=== PATIENT | female | born 1925 | race Caucasian/White ===

== ENCOUNTER 2016-08-28 16:07 | Emergency (ER) | payer MEDICARE, OTHER ==
[~2016-08-28] VITALS: Ht 160 cm; Wt 77.0 kg
[~2016-08-28 16:07] MED LIST: ACET325T45 GTB; AMLO2.5T2; ASPI81TA3 GTB; CARB1TAB18 GTB; DOCU50LI18 GTB; LEVO25TA59; LIPA1CAP4; MEMA10SO GTB
[2016-08-28 16:17] VITALS: Ht 160 cm; Wt 77.0 kg
--- NOTE | 2016-08-28 16:23 | ERA ---
ER Documentation Chief Complaint Date/Time DATE: 08/28/16 TIME: 16:23 Chief Complaint gtube replacement. dislodged today HPI The patient is a 89-year-old female, accidentally pulled out her G-tube today at 11 PM. Nursing staff was able to insert a Vidal catheter in the stoma. She is unable to provide a history, the history is obtained medical medical record ROS All systems reviewed and are negative except as per history of present illness. Medications Home Meds Reported Medications Acetaminophen* (Acetaminophen*) 325 Mg Tablet, 325 MG GTB Q4, #2 12/23/12 Aspirin (Aspirin) 81 Mg Chew, 81 MG GTB DAILY 12/23/12 Memantine* (Namenda*) 10 Mg/5 Ml Solution, 10 MG GTB DAILY 11/09/11 Docusate Sodium (Colace) 50 Mg/5 Ml Liquid, 100 MG GTB DAILY 11/09/11 Carbidopa-Levodopa* (Sinemet*) 1 Tab Tab, 1 TAB GTB Q8 11/09/11 Zxuidj-Osibfodq-Kxhsbjo* (Charis DR* 12,000) 1 Each Capsule. 07/03/10 Amlodipine Besylate* (Norvasc*) 2.5 Mg Tablet 07/03/10 Levothyroxine Sodium* (Synthroid*) 25 Mcg Tablet 05/13/09 Allergies Allergies: Coded Allergies: No Known Allergy (Verified , 11/11/11) PMhx/Soc History of Surgery: Yes (GT PLACEMENT) Anesthesia Reaction: No Hx Neurological Disorder: Yes (CVA; PARKINSONS; DEMENTIA; DEPRESSION; SEIZURE DISORDER) Hx Respiratory Disorders: Yes (PE) Hx Cardiac Disorders: Yes (ANEMIA; PERIPHERAL ARTERY DISEASE; HTN) Hx Psychiatric Problems: Yes (DEPRESSION) Hx Miscellaneous Medical Probl: Yes (dementia) Hx Alcohol Use: No Hx Substance Use: No Hx Tobacco Use: No Physical Exam Vitals Vital Signs Date Time Temp Pulse Resp B/P Pulse Ox O2 Delivery O2 Flow Rate FiO2 08/28/16 18:41 97.9 75 18 139/75 94 Room Air 08/28/16 16:17 97.5 81 20 143/65 94 Physical Exam Const: No acute distress. Head: Atraumatic. Eyes: Normal Conjunctiva. ENT: Normal External Ears, Nose and Mouth. Neck: Full range of motion. No meningismus. Resp: Clear to auscultation bilaterally. Cardio: Regular rate and rhythm. Abd: Soft, non distended, normal bowel sounds, non tender. Skin: No petechiae or rashes. Back: No midline or flank tenderness. Ext: No cyanosis, or edema. Neur: Unable to perform due to her condition Psych: Unable to perform due to condition. Procedures/MDM Procedure: Insertion of gastrostomy tube It was done under sterile technique. Stoma was cleaned with chlorhexidine. A Vidal catheter was removed, the new gastrostomy tube inserted through the stoma and inflated with 8 mL of sterile water. The stopper was advanced closer to the skin and dressed with drain gauze. [place] [id number] Radiology Main Line: [phone] DIAGNOSTIC IMAGING REPORT Patient: ILEANA MORAGN : 1925 Age: 89 Sex: F MR #: [id number] DOS: 08/28/16 1643 Ordering MD: YARED MEZA MD Location: E/R Room/Bed: PROCEDURE: XR abdomen series. CLINICAL INDICATION: s/p G tube placement TECHNIQUE: AP supine and upright abdomen x-ray. COMPARISON: 11/09/2011 FINDINGS: There is a PEG tube placed with the tip projecting over the lower stomach region. There is markedly increased stool through the rectum and lower sigmoid colon, measuring up to 13.0 cm. There are gaseous distended small bowel loops in the left abdomen. There are no abnormal calcifications overlying the urinary tracts. There is no gross abnormal soft tissue mass. There is a thoracolumbar levoscoliosis.. There is a chronic left femoral neck fracture with displacement of the left femoral shaft. There is right hip open reduction internal fixation. There is bony demineralization. IMPRESSION: 1. PEG tube projecting over the lower stomach region. 2. Marked fecal impaction with the rectum measuring up to 13.0 cm in diameter. 3. Bony demineralization. Levoscoliosis. Chronic displaced left femoral neck fracture. RPTAT: HBST .Des Carranza MD, MD Date Time Electronically viewed and signed by .Des Carranza MD, MD on 08/28/2016 18:09 .T/ CC: YARED MEZA MD Departure Diagnosis: Primary Impression: Encounter for feeding tube placement Condition: Stable Comments I discussed the findings with the patient. I advised the patient to follow-up with the primary physician in about 1-2 days, sooner if needed and return if any concern. YARED MEZA MD Aug 28, 2016 16:23
--- NOTE | 2016-08-28 18:10 | RADRPT ---
PROCEDURE: XR abdomen series. CLINICAL INDICATION: s/p G tube placement TECHNIQUE: AP supine and upright abdomen x-ray. COMPARISON: 11/09/2011 FINDINGS: There is a PEG tube placed with the tip projecting over the lower stomach region. There is markedly increased stool through the rectum and lower sigmoid colon, measuring up to 13.0 cm. There are gas eous distended small bowel loops in the left abdomen. There are no abnormal calcifications overlyin g the urinary tracts. There is no gross abnormal soft tissue mass. There is a thoracolumbar levoscoliosis.. There is a chronic left femoral neck fracture with displace ment of the left femoral shaft. There is right hip open reduction internal fixation. There is bony demineralization. IMPRESSION: 1. PEG tube projecting over the lower stomach region. 2. Marked fecal impaction with the rectum measuring up to 13.0 cm in diameter. 3. Bony demineralization. Levoscoliosis. Chronic displaced left femoral neck fracture. RPTAT: HBST .Des Carranza MD, MD Date Time Electronically viewed and signed by .Des Carranza MD, on 08/28/2016 18:09 .T/
[2016-08-28] MEDS ORDERED: NICARDipine HCL 30 MG CAPSULE PO ONE (20:30)
[2016-08-28 20:47] VITALS: BP 151/71; PULSE 81; RESP 18; TEMP 97.9
== END 2016-08-28 20:50 | disposition home or self-care (01) ==
LOC: E/R 16:07
DX: Z43.1 Encounter for attention to gastrostomy (principal); R40.2242 Coma scale, best verbal response, confused conversation, at arrival to emergency department; R40.2352 Coma scale, best motor response, localizes pain, at arrival to emergency department; I10 Essential (primary) hypertension; R40.2142 Coma scale, eyes open, spontaneous, at arrival to emergency department; G20 Parkinson's disease; Z79.82 Long term (current) use of aspirin
CPT/HCPCS: 74000

== ENCOUNTER 2017-02-22 20:01 | Emergency (ER) | payer MEDICARE, OTHER ==
[~2017-02-22] VITALS: Ht 157.5 cm; Wt 63.6 kg
[2017-02-22 20:04] VITALS: Ht 157.5 cm; Wt 63.6 kg
--- NOTE | 2017-02-22 21:12 | RADRPT ---
PROCEDURE: XR Abdomen. CLINICAL INDICATION: Check gastrostomy tube position. TECHNIQUE: AP supine abdomen x-ray. The image was obtained following injection of 30 ml of Gastrog rafin into the gastrostomy tube. COMPARISON: 08/28/2016. FINDINGS: Contrast is present in the gastrostomy tube, stomach, and duodenum. There is a large amount of stool in the rectosigmoid consistent with constipation. There is no evide nce of obstruction. There are no abnormal calcifications overlying the urinary tracts. There are degenerative changes of the spine. IMPRESSION: 1. Contrast injected into the gastrostomy tube enters the stomach and duodenum. 2. Constipation. 3. Degenerative changes of the spine. RPTAT: QQ .Martin Bullard MD, MD Date Time Electronically viewed and signed by .Martin Bullard MD, on 02/22/2017 21:12 .R/
--- NOTE | 2017-02-22 21:50 | ERD ---
ER Documentation Chief Complaint Chief Complaint [facility] HPI This is a 89-year-old female who had her feeding tube accidentally pulled out just prior to arrival. Staff at the nursing care facility placed a Vidal catheter into the ostomy to keep it patent. There is no other medical history the patient is in a grossly vegetative state and is unresponsive. She is in no acute distress. ROS All systems reviewed and are negative except as per history of present illness. Medications Home Meds Reported Medications Acetaminophen* (Acetaminophen*) 325 Mg Tablet, 325 MG GTB Q4, #2 12/23/12 Aspirin (Aspirin) 81 Mg Chew, 81 MG GTB DAILY 12/23/12 Memantine* (Namenda*) 10 Mg/5 Ml Solution, 10 MG GTB DAILY 11/09/11 Docusate Sodium (Colace) 50 Mg/5 Ml Liquid, 100 MG GTB DAILY 11/09/11 Carbidopa-Levodopa* (Sinemet*) 1 Tab Tab, 1 TAB GTB Q8 11/09/11 Gapyjp-Zibjoolo-Rnhrqqk* (Charis DR* 12,000) 1 Each Capsule. 07/03/10 Amlodipine Besylate* (Norvasc*) 2.5 Mg Tablet 07/03/10 Levothyroxine Sodium* (Synthroid*) 25 Mcg Tablet 05/13/09 Allergies Allergies: Coded Allergies: No Known Allergy (Verified , 11/11/11) PMhx/Soc History of Surgery: Yes (GT PLACEMENT) Anesthesia Reaction: No Hx Neurological Disorder: Yes (DYSPHAGIA, CVA) Hx Respiratory Disorders: No Hx Cardiac Disorders: Yes (HTN) Hx Psychiatric Problems: No Hx Miscellaneous Medical Probl: Yes (HYPOTHYROID) Hx Alcohol Use: No (UNK) Hx Substance Use: No (UNK) Hx Tobacco Use: No (UNK) Smoking Status: Unknown if ever smoked FmHx Family History: No coronary disease Physical Exam Vitals Vital Signs Date Time Temp Pulse Resp B/P Pulse Ox O2 Delivery O2 Flow Rate FiO2 02/22/17 20:15 98.0 91 23 165/75 96 Nasal Cannula 2.0 02/22/17 20:04 99.3 89 18 162/82 91 Physical Exam Const: [Well-developed, well-nourished] Head: [Atraumatic, normocephalic] Eyes: [Normal Conjunctiva, PERRLA, EOMI, normal sclera, no nystagmus] ENT: [Normal External Ears, Nose and Mouth, moist mucus membranes.] Neck: [Full range of motion. Passive, no meningismus, no lymphadenopathy.] Resp: [Clear to auscultation bilaterally, no wheezing, rhonchi, rales] Cardio: [Regular rate and rhythm, no murmurs, S1 S2 present] Abd: [Soft, non tender x 4, non distended. Vidal catheter in place keeping the ostomy open of the G-tube normal bowel sounds, no guarding or rebound, no pulsitile abdominal masses or bruits] Skin: [No petechiae or rashes, no ecchymosis , no maculopapular rash] Back: [No midline or flank tenderness] Ext: [No cyanosis, or edema, FROM x 4, normal inspection, neurovascularly intact x 4] Neur: [Awake sensation intact x 4, limited exam Psych: Cannot assess Procedures/MDM Procedure: G-tube replacement by me Vidal catheter balloon was deflated and removed by me A new G-tube was lubricated under sterile technique and placed into the stoma. 10 cc of normal saline was placed into the balloon with adequate placement. The patient tolerated the procedure well. KUB was then taken with Gastrografin injected into the G-tube to confirm placement into the stomach PROCEDURE: XR Abdomen. CLINICAL INDICATION: Check gastrostomy tube position. TECHNIQUE: AP supine abdomen x-ray. The image was obtained following injection of 30 ml of Gastrografin into the gastrostomy tube. COMPARISON: 08/28/2016. FINDINGS: Contrast is present in the gastrostomy tube, stomach, and duodenum. There is a large amount of stool in the rectosigmoid consistent with constipation. There is no evidence of obstruction. There are no abnormal calcifications overlying the urinary tracts. There are degenerative changes of the spine. IMPRESSION: 1. Contrast injected into the gastrostomy tube enters the stomach and duodenum. 2. Constipation. 3. Degenerative changes of the spine. RPTAT: QQ .Martin Bullard MD, MD Date Time Electronically viewed and signed by .Maritn Bullard MD, MD on 02/22/2017 21:12 .R/ CC: SHANA ALEJO DO Departure Diagnosis: Primary Impression: Encounter for feeding tube placement Condition: Stable Patient Instructions: Feeding Tube Replacement Referrals: ZULY MCKAY MD (PCP) SHANA ALEJO DO Feb 22, 2017 21:50
[2017-02-22] MEDS ORDERED: NICARDipine HCL 30 MG CAPSULE PO ONE (22:30)
[2017-02-22 22:59] VITALS: BP 146/67; PULSE 94; RESP 22; TEMP 98.2
== END 2017-02-22 23:01 | disposition home or self-care (01) ==
LOC: E/R 20:01
DX: Z43.1 Encounter for attention to gastrostomy (principal); E03.9 Hypothyroidism, unspecified; I10 Essential (primary) hypertension; R40.2142 Coma scale, eyes open, spontaneous, at arrival to emergency department; R40.2212 Coma scale, best verbal response, none, at arrival to emergency department; R40.2312 Coma scale, best motor response, none, at arrival to emergency department; Z79.82 Long term (current) use of aspirin
CPT/HCPCS: 74000